=== PATIENT | female | born 1980 | race Two or more races ===

== ENCOUNTER 2020-02-23 09:07 | Outpatient (CLI) | payer OTHER ==
[~2020-02-23] VITALS: Ht 175.3 cm; Wt 80.9 kg
[2020-02-23] MEDS ORDERED: NEWBORN KIT ONE (09:42)
[2020-02-23] MEDS ORDERED: FENTANYL PF 100 MCG/2ML ONE (09:43)
[2020-02-23] MEDS ORDERED: OXYTOCIN 30U/ 0.9% NaCL 500ML 0 ML ONE (09:43)
[2020-02-23 09:54] VITALS: BP 101/61
[2020-02-23] MEDS ORDERED: PREN1TAB60 PO (10:39)
== END 2020-02-23 10:47 | disposition home or self-care (01) ==
LOC: LDOP 09:07
PROVIDERS: ATTEND Obstetrics & Gynecology Female Pelvic Medicine and Reconstructive Surgery
DX: O09.93 Supervision of high risk pregnancy, unspecified, third trimester (principal); Z3A.35 35 weeks gestation of pregnancy
CPT/HCPCS: 59025